=== PATIENT | female | born 1990 | race African-American/Black ===

== ENCOUNTER 2023-02-02 12:26 | Emergency (ER) | payer MEDICAID ==
[~2023-02-02] VITALS: Ht 170.2 cm; Wt 64.0 kg
[2023-02-02 12:32] VITALS: BP 134/87
== END 2023-02-02 13:32 | disposition left against medical advice (07) ==
LOC: ER 13:07
DX: Z53.21 Procedure and treatment not carried out due to patient leaving prior to being seen by health care provider (principal)
CPT/HCPCS: 99281